=== PATIENT | male | born 1995 | race Caucasian/White ===

== ENCOUNTER 2017-06-12 15:28 | Emergency (ER) | payer OTHER ==
[~2017-06-12] VITALS: Ht 188 cm; Wt 63.5 kg
[~2017-06-12 15:28] MED LIST: CEPH250SUA PO; CEPH500 PO; CRUTCH3 XX; METCAR500 PO; Mobic7.5 MG PO; NAPR550 PO; PERM5TC TOP; Percocet 5-3251 EACH PO; SILSUL1TC TOP; SULTRIDS PO
== END 2017-06-12 16:45 | disposition home or self-care (01) ==
LOC: ER 15:28
DX: S62.635A Displaced fracture of distal phalanx of left ring finger, initial encounter for closed fracture (principal); F17.210 Nicotine dependence, cigarettes, uncomplicated; W22.8XXA Striking against or struck by other objects, initial encounter
CPT/HCPCS: 73140; 99283

== ENCOUNTER 2018-04-24 09:12 | Emergency (ER) | payer OTHER ==
[~2018-04-24] VITALS: Ht 188 cm; Wt 63.5 kg
== END 2018-04-24 11:42 | disposition home or self-care (01) ==
LOC: ER 09:12
DX: S63.619A Unspecified sprain of unspecified finger, initial encounter (principal); M54.2 Cervicalgia; V49.9XXA Car occupant (driver) (passenger) injured in unspecified traffic accident, initial encounter; F17.210 Nicotine dependence, cigarettes, uncomplicated
CPT/HCPCS: 72040; 73130; 99283-25